=== PATIENT | female | born 1985 | race Caucasian/White ===

== ENCOUNTER 2016-10-03 10:17 | Emergency (ER) | payer OTHER ==
[~2016-10-03] VITALS: Ht 154.9 cm; Wt 81.0 kg
[2016-10-03 13:55] VITALS: BP 112/75
== END 2016-10-03 13:55 | disposition home or self-care (01) ==
LOC: ED 10:17
DX: K42.9 Umbilical hernia without obstruction or gangrene (principal); Z98.890 Other specified postprocedural states

== ENCOUNTER 2018-10-18 08:19 | Emergency (ER) | payer OTHER ==
[~2018-10-18] VITALS: Ht 152.4 cm; Wt 81.6 kg
[2018-10-18 08:24] VITALS: Ht 152.4 cm; Wt 81.6 kg
[2018-10-18 09:29] LABS: BASOPHIL % 0.3 % (0-2); PLATELET COUNT 395 x10^3mcL (130-400)
[2018-10-18 09:45] LABS: CALCIUM 9.5 mg/dL (8.5-10.1); CARBON DIOXIDE 23.9 mmol/L (21-32); CHLORIDE SERUM 102 mmol/L (98-107); CREATININE SERUM 0.7 mg/dL (0.6-1.0); GFR1 > 60 mL/min; GLUCOSE SERUM 108 mg/dL (74-106); POTASSIUM SERUM 3.9 mmol/L (3.5-5.1); SODIUM SERUM 138 mmol/L (136-145)
[2018-10-18 09:49] LABS: ALKALINE PHOSPHATASE 103 U/L (46-116); ALT/SGPT 68 U/L (14-59); AST/SGOT 36 U/L (15-37); BILIRUBIN TOTAL 0.7 mg/dL (0.20-1.00); LIPASE 131 IU/L (73-393)
[2018-10-18 09:56] LABS: TOTAL PROTEIN, SERUM 9.2 g/dL (6.4-8.2)
[2018-10-18 10:10] LABS: microscopic required? YES; urine erythrocyte 3+ (NEGATIVE)
[2018-10-18 12:03] VITALS: BP 117/77
== END 2018-10-18 12:58 | disposition home or self-care (01) ==
LOC: ED 08:19
PROVIDERS: Emergency Medicine
DX: R10.32 Left lower quadrant pain (principal); R10.33 Periumbilical pain; R19.7 Diarrhea, unspecified; M25.571 Pain in right ankle and joints of right foot; Z98.890 Other specified postprocedural states
CPT/HCPCS: 87046; 87046-59; J7030